=== PATIENT | male | born 1940 | race Caucasian/White ===

== ENCOUNTER → 2017-04-07 | Outpatient (CLI) | payer MEDICARE, BC ==
[~2017-04-07] VITALS: Ht 180.3 cm; Wt 120.0 kg
[~2017-04-07] MED LIST: ACIP20TA6 PO; CEFD300C PO; CHLORHEXIDINE GLUCONATE 2 % 1 PACK (2 CLOTHS) TOPICAL PRN; CHOL1CAP14 PO; DILT-60 PO; FERR65TA PO; FLUT1INH INH; FURO40TA PO; GLIM4TAB PO; INSULIN HUMAN REGULAR 1,000 UNITS/10 ML VIAL SQ PRN; IRBE300T44 PO; IRON18TA; LACTATED RINGER'S 1000 ML IV PRN; METO50TA PO; METOPROLOL TARTRATE 25 MG TAB PO PRN; MONT10TA2 PO; PANT20 PO; POVIDONE IODINE 5% (ANTISEPSIS KIT) 4 APPLICATIONS EACH NARE PRN; PRAV20TA2 PO; PRED10 PO; PRESCAP5 PO; PROPOFOL 200 MG/20 ML AMP IV ONE; SODIUM CHLORID 0.9% 500 ML IV PRN; TAMS0.4C4 PO; VITA10002 PO; VITA200012 PO; XARE20TA PO
[2017-04-07 08:58] VITALS: BP 129/69; PULSE 78; RESP 18; TEMP 98.5; O2SAT 96
[2017-04-07 10:42] VITALS: TEMP 97.6
[2017-04-07 10:53] VITALS: BP 123/65; PULSE 66; RESP 16; O2SAT 98
--- NOTE | 2017-04-07 10:58 | GIPROC ---
[facility] [address] [facility]. [facility], [address] EGD PROCEDURE REPORT EXAM DATE: 04/07/2017 PATIENT NAME: Jason Parrish MR #: [id number] BIRTHDATE: 1940 ATTENDING: Jesús Mondragon MD ORDER #: [id number] SYSTEMS SOFTWARE MANAGER: Hamzah Hemphill and Lupe Mackey STATUS: outpatient INDICATIONS: The patient is a 76 yr old male here for an EGD due to iron deficiency anemia PROCEDURE PERFORMED: EGD w/ biopsy MEDICATIONS: None and Per Anesthesia. TOPICAL ANESTHETIC: none CONSENT: The patient understands the risks and benefits of the procedure and understands that these risks include, but are not limited to: sedation, allergic reaction, infection, perforation and/or bleeding. Alternative means of evaluation and treatment include, among others: physical exam, x-rays, and/or surgical intervention. The patient elects to proceed with this endoscopic procedure. medical equipment was checked for proper function. Hand hygiene and appropriate measures for infection prevention was taken. After the risks, benefits and alternatives of the procedure were thoroughly explained, Informed consent was verified, confirmed and timeout was successfully executed by the treatment team. The patient was anesthetized with topical anesthesia and the Pentax [id number] endoscope was introduced through the mouth and advanced to the third portion of the duodenum. The gastroscope was then slowly withdrawn and removed. ESOPHAGUS: The mucosa of the esophagus appeared normal. Multiple biopsies were performed. GE junction was at 45 cm. The GE juncion was irregular-biopsies taken. STOMACH: There was mild gastritis on the anterior wall of the gastric antrum. Multiple biopsies were performed. Biopsies also taken from fundus,body,angularis. DUODENUM: The duodenal mucosa appeared normal in the 3rd part of the duodenum, duodenal bulb, and 2nd part duodenum. Biopsies were taken of third portion to r/o sprue. ADVERSE EVENTS: There were no complications. IMPRESSIONS: 1. The esophagus appeared normal; multiple biopsies were performed 2. GE junction was at 45 cm . Irregular GE junction-biopsied 3. There was mild gastritis on the anterior wall of the gastric antrum; multiple biopsies were performed 4. Biopsies also taken from fundus,body,angularis 5. Normal duodenal mucosa in the 3rd part of the duodenum, duodenal bulb, and 2nd part duodenum 6. Biopsies were taken of third portion to r/o sprue RECOMMENDATIONS: 1. Await biopsy results. Biopsy results will not be ready for 7-10 days. If you don't hear from us in two weeks, call our office for biopsy results. 2. Colonoscopy to follow PATIENT CONDITION: stable DISPOSITION: Home REPEAT EXAM: NONE Jesús Mondragon MD eSigned: Jesús Mondragon MD 04/07/2017 10:58 AM cc: Raymond Davis M.D. PATIENT NAME: Jason Parrish MR#: [id number]
--- NOTE | 2017-04-07 11:14 | GIPROC ---
[facility] [address] [facility]. [facility], [address] COLONOSCOPY PROCEDURE REPORT EXAM DATE: 04/07/2017 PATIENT NAME: Jason Parrish MR #: [id number] BIRTHDATE: 1940 ENDOSCOPIST: Jessú Mondragon MD ORDER #: [id number] SCIENCE PROFESSOR: Hamzah Hemphill and Lupe Mackey STATUS: outpatient INDICATIONS: The patient is a 76 yr old male here for a colonoscopy due to iron deficiency anemia and rectal bleeding PROCEDURE PERFORMED: Colonoscopy with polypectomy MEDICATIONS: None and Per Anesthesia. PREP QUALITY: marginal PREP TYPE:MoviPrep ESTIMATED BLOOD LOSS: None CONSENT: The patient understands the risks and benefits of the procedure and understands that these risks include, but are not limited to: sedation, allergic reaction, infection, perforation and/or bleeding. Alternative means of evaluation and treatment include, among others: physical exam, x-rays, and/or surgical intervention. The patient elects to proceed with this endoscopic procedure. medical equipment was checked for proper function. Hand hygiene and appropriate measures for infection prevention was taken. After the risks, benefits and alternatives of the procedure were thoroughly explained, Informed consent was verified, confirmed and timeout was successfully executed by the treatment team. A digital exam revealed no abnormalities of the rectum The Pentax [id number] endoscope was introduced through the anus and advanced to the terminal ileum which was intubated for a short distance. The instrument was then slowly withdrawn as the colon was fully examined. COLON FINDINGS: A polypoid shaped sessile polyp measuring 5 mm in size was found. A polypectomy was performed with a cold snare. The resection was complete and the polyp tissue was completely retrieved. A polypoid shaped semi-pedunculated polyp measuring 1.8 cm in size was found in the rectosigmoid colon. A polypectomy was performed using snare cautery. The resection was complete and the polyp tissue was completely retrieved. Mild diverticulosis was noted at the cecum and in the transverse colon. No bleeding was noted from the diverticulosis. Moderate diverticulosis was noted in the descending colon and sigmoid colon. No bleeding was noted from the diverticulosis. Moderate sized internal hemorrhoids were found. Retroflexion was performed The scope was then completely withdrawn from the patient and the procedure terminated. PROCEDURE WITHDRAWAL TIME:12minutes ADVERSE EVENTS: There were no complications. IMPRESSIONS: 1. A sessile polyp measuring 5 mm in size was found; polypectomy was performed with a cold snare 2. A semi-pedunculated polyp measuring 1.8 cm in size was found in the rectosigmoid colon; polypectomy was performed using snare cautery 3. Mild diverticulosis was noted at the cecum and in the transverse colon 4. Moderate diverticulosis was noted in the descending colon and sigmoid colon 5. Moderate sized internal hemorrhoids 6. Retroflexion was performed 7. Revealed no abnormalities of the rectum RECOMMENDATIONS: 1. Await biopsy results. Biopsy results will not be ready for 7-10 days. If you don't hear from us in two weeks, call our office for results. 2. High fiber diet 3. Avoid NSAIDS and Aspirin 4. Restart Xarelto on 04/08/2017 ROV in 1-2 months Call for biospy results in 7-10 days RECALL: NONE Jesús Mondragon MD eSigned: Jesús Mondragon MD 04/07/2017 11:13 AM cc: Raymond Davis M.D. PATIENT NAME: Jason Parrish MR#: [id number]
--- NOTE | 2017-04-07 15:28 | EKG ---
Date Performed: 04/07/2017 Time Performed: 08:36:57 PTAGE: 76 years EKG: Sinus rhythm WITH FIRST DEGREE AV BLOCK INDETERMINATE AXIS RIGHT BUNDLE BRANCH BLOCK NONSPECIFIC ST CHANGES IN TH E PRECORDIAL LEADS, CONSIDER ISCHEMIA. ABNORMAL ECG NO PREVIOUS TRACING DOCTOR: Bao Garcia Interpretating Date/Time 04/07/2017 15:28:00
== END ==
LOC: HEND 07:50
PROVIDERS: ATTEND Internal Medicine Gastroenterology
DX: D50.9 Iron deficiency anemia, unspecified (principal); K62.5 Hemorrhage of anus and rectum; D12.0 Benign neoplasm of cecum; K62.1 Rectal polyp; K57.90 Diverticulosis of intestine, part unspecified, without perforation or abscess without bleeding; K64.8 Other hemorrhoids; D12.7 Benign neoplasm of rectosigmoid junction; K29.70 Gastritis, unspecified, without bleeding; R94.31 Abnormal electrocardiogram [ECG] [EKG]
CPT/HCPCS: 00740; 00810; 43239; 45385; 88305; 88312; 93005; J7120

== ENCOUNTER 2017-04-18 10:42 | Inpatient (IN) | payer MEDICARE, BC ==
[~2017-04-18] VITALS: Ht 180.3 cm; Wt 128.7 kg
[~2017-04-18 10:42] MED LIST changes: -CEFD300C PO; -CHLORHEXIDINE GLUCONATE 2 % 1 PACK (2 CLOTHS) TOPICAL PRN; -CHOL1CAP14 PO; -INSULIN HUMAN REGULAR 1,000 UNITS/10 ML VIAL SQ PRN; -IRON18TA; -LACTATED RINGER'S 1000 ML IV PRN; -METOPROLOL TARTRATE 25 MG TAB PO PRN; -POVIDONE IODINE 5% (ANTISEPSIS KIT) 4 APPLICATIONS EACH NARE PRN; -PRED10 PO; -PROPOFOL 200 MG/20 ML AMP IV ONE; -SODIUM CHLORID 0.9% 500 ML IV PRN
[2017-04-18 10:44] VITALS: BP 158/77; PULSE 114; RESP 24; TEMP 98.2; O2SAT 94
[2017-04-18] MEDS ORDERED: CHOL1CAP14 PO (11:11)
[2017-04-18] MEDS ORDERED: CEFD300C PO (11:11)
[2017-04-18] MEDS ORDERED: PRED10 PO (11:11)
[2017-04-18] MEDS ORDERED: IRON18TA (11:11)
[2017-04-18 11:20] VITALS: BP 130/94; PULSE 87; RESP 17; O2SAT 97
--- NOTE | 2017-04-18 11:25 | PD ---
HPI Chief Complaint: GI Complaint Time Seen by Provider: 11:21 Travel History International Travel<30 days: No Contact w/Intl Traveler<30days: No Traveled to known affect area: No History of Present Illness HPI This is a 76-year-old gentleman with a history of COPD, previous A. fib, recent colon polypectomy on the 15th of this month, who presents today with complaints of bright red blood per rectum. The patient states he was doing well up until today when he went to have a bowel movement and noticed a large amount of bright red blood coming from his rectum. He estimates he's lost about a pint of blood. The patient is currently taking Xarelto. The patient denies any abdominal pain. He denies any rectal pain or discomfort. The patient has obvious bloodsoaked tissue noted in his rectal area. There is no acute dizziness or worsening shortness of breath. There is no chest pain, chest pressure. The patient does have a history of anemia for which she states taking iron and vitamin D. PFSH Past Medical History Hx Anticoagulant Therapy: Yes (XARELTO) Cancer: No Cardiovascular Problems: Yes (QUAD BYPASS) Diabetes: Yes (TYPE II) Patient Takes Glucophage: No Endocrine: Yes Gastrointestinal Disorders: Yes (SCARRED ESOPHAGUS---DILITATIONS X4) Genitourinary: No Hepatitis: No Hiatal Hernia: No Hypertension: Yes Immune Disorder: No Medical other: Yes (ANEMIA) Musculoskeletal: No Neurologic: No Psychiatric: No Reproductive: No Respiratory: Yes (COPD) Thyroid Disease: No Past Surgical History Abdominal Surgery: No AICD: No Body Medical Devices: NONE Cardiac Surgery: Yes (CABGX4) Endocrine Surgery: No Eye Surgery: Yes (BILATERAL TORN RETINAS TREATED WITH LASER SURGERY) Genitourinary Surgery: No Gynecologic Surgery: No Joint Replacement: No Oral Surgery: Yes (TONSILLECTOMY) Pacemaker: No Thoracic Surgery: No Other Surgery: Yes Social History Alcohol Use: No Tobacco Use: No (40 years ago) Substance Use: No Allergies-Medications (Allergen,Severity, Reaction): Coded Allergies: No Known Allergies (Unverified , 04/07/17) Reported Meds & Prescriptions Reported Meds & Active Scripts Active Reported Cefdinir 300 Mg Cap 300 Mg PO BID Prednisone 10 Mg Tab 10 Mg PO DAILY Iron (Ferrous Sulfate) 90 Mg Tab D3 Maximum Strength (Cholecalciferol) 5,000 Unit Cap 5,000 Units PO DAILY Vitamin B-12 (Cyanocobalamin) 1,000 Mcg Tab Unknown Dose PO DAILY Diltiazem CD 24 HR 120 Mg Caper 120 Mg PO DAILY Breo Ellipta Inh (Fluticasone/Vilanterol) 100-25 Mcg/Act Inh 1 Puff INH DAILY Use daily at the same time. Tamsulosin (Tamsulosin HCl) 0.4 Mg Cap 0.4 Mg PO HS Singulair (Montelukast Sodium) 10 Mg Tab 10 Mg PO DAILY Avapro (Irbesartan) 300 Mg Tab 300 Mg PO DAILY Pravastatin 20 Mg Tab 20 Mg PO HS Xarelto (Rivaroxaban) 20 Mg Tab 20 Mg PO DAILY Metoprolol Tartrate 50 Mg Tab 50 Mg PO BID Furosemide 40 Mg Tab 40 Mg PO DAILY Glimepiride 4 Mg Tab 4 Mg PO DAILY Take with breakfast or first main meal Protonix (Pantoprazole Sodium) 20 Mg Tab 20 Mg PO DAILY Review of Systems Except as stated in HPI: all other systems reviewed are Neg General / Constitutional: No: Fever, Chills HENT: No: Headaches, Lightheadedness Cardiovascular: No: Chest Pain or Discomfort, Palpitations Respiratory: Positive: Shortness of Breath, No: Cough, Wheezing Gastrointestinal: Positive: Hematochezia, No: Nausea, Vomiting, Diarrhea, Abdominal Pain Genitourinary: No: Dysuria, Decreased Urinary Output Musculoskeletal: No: Weakness Neurologic: No: Weakness, Dizziness, Headache, Change in Mentation Psychiatric: No: Anxiety, Depression Physical Exam Narrative GENERAL: Well-developed well-nourished gentleman in no acute distress. SKIN: Focused skin assessment warm/dry. HEAD: Atraumatic. Normocephalic. EYES: Pupils equal and round. No scleral icterus. No injection or drainage. ENT: No nasal bleeding or discharge. Mucous membranes pink and moist. NECK: Trachea midline. No JVD. CARDIOVASCULAR: Heart rate 101, sinus tachycardia. No murmur appreciated. RESPIRATORY: No accessory muscle use. Clear to auscultation. Breath sounds equal bilaterally. No Rales or wheezing. GASTROINTESTINAL: Abdomen soft, obese, non-tender, nondistended. Hepatic and splenic margins not palpable. MUSCULOSKELETAL: No obvious deformities. No clubbing. No cyanosis. Bilateral lower shower is with dependent edema. NEUROLOGICAL: Awake and alert. No obvious cranial nerve deficits. Motor grossly within normal limits. Normal speech. PSYCHIATRIC: Appropriate mood and affect; insight and judgment normal. Data Data Last Documented VS Vital Signs Date Time Temp Pulse Resp B/P Pulse Ox O2 Delivery O2 Flow Rate FiO2 04/18/17 12:40 87 17 130/94 97 Room Air 04/18/17 10:44 98.2 Orders Complete Blood Count With Diff (04/18/17 11:56) Comprehensive Metabolic Panel (04/18/17 11:56) Lipase (04/18/17 11:56) Prothrombin Time / Inr (Pt) (04/18/17 11:56) Act Partial Throm Time (Ptt) (04/18/17 11:56) Urinalysis - C+S If Indicated (04/18/17 11:56) Type And Screen (04/18/17 11:56) Abdomen, Upright Only (04/18/17 11:56) Ecg Monitoring (04/18/17 11:56) Iv Access Insert/Monitor (04/18/17 11:56) Oximetry (04/18/17 11:56) Sodium Chlor 0.9% 1000 Ml Inj (Ns 1000 M (04/18/17 11:56) Sodium Chloride 0.9% Flush (Ns Flush) (04/18/17 12:00) Admit Order (Ed Use Only) (04/18/17 13:48) Labs Laboratory Tests Test 04/18/17 11:45 White Blood Count 9.2 TH/MM3 Red Blood Count 3.16 MIL/MM3 Hemoglobin 9.2 GM/DL Hematocrit 28.2 % Mean Corpuscular Volume 89.2 FL Mean Corpuscular Hemoglobin 29.1 PG Mean Corpuscular Hemoglobin 32.6 % Concent Red Cell Distribution Width 16.1 % Platelet Count 208 TH/MM3 Mean Platelet Volume 9.5 FL Neutrophils (%) (Auto) 89.7 % Lymphocytes (%) (Auto) 3.6 % Monocytes (%) (Auto) 6.5 % Eosinophils (%) (Auto) 0.2 % Basophils (%) (Auto) 0.0 % Neutrophils # (Auto) 8.3 TH/MM3 Lymphocytes # (Auto) 0.3 TH/MM3 Monocytes # (Auto) 0.6 TH/MM3 Eosinophils # (Auto) 0.0 TH/MM3 Basophils # (Auto) 0.0 TH/MM3 CBC Comment DIFF FINAL Differential Comment Prothrombin Time 12.2 SEC Prothromb Time International 1.1 RATIO Ratio Activated Partial 26.1 SEC Thromboplast Time Sodium Level 139 MEQ/L Potassium Level 4.5 MEQ/L Chloride Level 108 MEQ/L Carbon Dioxide Level 21.5 MEQ/L Anion Gap 10 MEQ/L Blood Urea Nitrogen 42 MG/DL Creatinine 2.11 MG/DL Estimat Glomerular Filtration 31 ML/MIN Rate Random Glucose 216 MG/DL Calcium Level 8.4 MG/DL Total Bilirubin 0.2 MG/DL Aspartate Amino Transf 11 U/L (AST/SGOT) Alanine Aminotransferase 20 U/L (ALT/SGPT) Alkaline Phosphatase 91 U/L Total Protein 6.6 GM/DL Albumin 3.4 GM/DL Lipase 153 U/L Blood Type O POSITIVE Antibody Screen NEGATIVE Blood Bank Comment MDM Medical Decision Making Medical Screen Exam Complete: Yes Emergency Medical Condition: Yes Differential Diagnosis Upper versus lower GI bleed versus bleeding polypectomy site versus hemorrhoidal bleeding. Narrative Course 76 year-old gentleman presents with rectal bleeding. The patient is on Xarelto. Patient states he lost about a pint of blood. He does have a history of chronic anemia. He also has a history of kidney disease. Patient's hemoglobin is 9.2. He is stable. I discussed the case with Dr. Morel, who is covering for his GI physician, who will see him this afternoon and possibly scope him tonight. If not it'll be tomorrow. The case was also discussed with Dr. Garcia, [facility] hospitalist, who will be the admitting physician. Diagnosis Primary Impression: GI bleed Additional Impressions: Anticoagulated by anticoagulation treatment COPD (chronic obstructive pulmonary disease) Chronic kidney disease Admitting Information Admitting Physician Requests: Admit Ethan Bajwa MD April 18, 2017 11:25
[2017-04-18] MEDS ORDERED: SODIUM CHLOR 0.9% 1000 ML INJ 1,000 ML IV SCH (11:56)
[2017-04-18] MEDS ORDERED: SODIUM CHLORIDE 0.9% FLUSH 10 ML FLUSH IVF PRN (12:00)
[2017-04-18 12:22] LABS: AUTOMATED NEUTROPHIL # 8.3 TH/MM3 (1.8-7.7); EOSINOPHIL % 0.2 % (0.0-4.0); HEMATOCRIT 28.2 % (39.0-51.0); HEMO FLAGS DIFF FINAL; LYMPH % 3.6 % (9.0-44.0); LYMPHOCYTE # 0.3 TH/MM3 (1.0-4.8); MEAN CELL VOLUME 89.2 FL (80.0-100.0); MEAN CORPUSCULAR HEMOGLOBIN 29.1 PG (27.0-34.0); MEAN CORPUSCULAR HGB CONC 32.6 % (32.0-36.0); MONO % 6.5 % (0.0-8.0); NEUT % 89.7 % (16.0-70.0); PLATELET COUNT 208 TH/MM3 (150-450); RED BLOOD COUNT 3.16 MIL/MM3 (4.50-5.90); RED CELL DISTRIBUTION WIDTH 16.1 % (11.6-17.2); WHITE BLOOD COUNT 9.2 TH/MM3 (4.0-11.0)
--- NOTE | 2017-04-18 12:26 | RADRPT ---
EXAM DATE/TIME: 04/18/2017 12:03 [place] COMPARISON: No previous studies available for comparison. INDICATIONS : Blood in stool, colonoscopy 10 days ago MEDICAL HISTORY : Blood on stool SURGICAL HISTORY : CABG. ENCOUNTER: Initial ACUITY: 2 weeks PAIN SCORE: 5/10 LOCATION: Bilateral abdomen FINDINGS: A single erect view of the abdomen demonstrates small pleural effusions. Nonspecific bowel gas patter n without evidence for obstruction. No free air seen. Cardiomegaly. CONCLUSION: 1. Limited exam due to patient's size. No bowel obstruction or free air seen. Small pleural effusions . Giancarlo Arevalo MD on April 18, 2017 at 12:24 Board Certified Radiologist. This report was verified electronically.
[2017-04-18 12:31] LABS: APTT (PATIENT) 26.1 SEC (24.3-30.1); INTERNATIONAL NORMALIZED RATIO 1.1 RATIO; PROTHROMBIN TIME - PATIENT 12.2 SEC (9.8-11.6)
[2017-04-18 12:40] VITALS: BP 130/94; PULSE 87; RESP 17; O2SAT 97
[2017-04-18 12:45] LABS: ANION GAP 10 MEQ/L (5-15); AST (GOT) 11 U/L (15-37); BICARBONATE 21.5 MEQ/L (21.0-32.0); BLOOD UREA NITROGEN 42 MG/DL (7-18); CHLORIDE 108 MEQ/L (98-107); GLOMERULAR FILTRATION RATE 31 ML/MIN (>89); POTASSIUM 4.5 MEQ/L (3.5-5.1); SODIUM (NA) 139 MEQ/L (136-145)
[2017-04-18 12:48] LABS: ALKALINE PHOSPHATASE 91 U/L (45-117); ALT (GPT) 20 U/L (12-78); TOTAL BILIRUBIN ADULT 0.2 MG/DL (0.2-1.0)
[2017-04-18 13:53] LABS: BLOOD, URINE NEG (NEG); GLUCOSE,URINE NEG (NEG); KETONE, URINE NEG (NEG); NITRITE,URINE NEG (NEG); URINE COLOR LIGHT-YELLOW (YELLW/STRAW)
[2017-04-18 13:57] LABS: COMMENT (UR) CULT NOT INDICATED; CULTURE IF INDICATED CULT NOT INDICATED
[2017-04-18] MEDS ORDERED: BISACODYL 10 MG SUPP RECTAL PRN (14:00)
[2017-04-18] MEDS ORDERED: SENNOSIDES 8.6 MG TAB PO PRN (14:00)
[2017-04-18] MEDS ORDERED: LACTULOSE SYRUP 20 GM/30 ML CUP PO PRN (14:00)
[2017-04-18] MEDS ORDERED: ONDANSETRON HCL 4 MG/2 ML VIAL IVP PRN (14:00)
[2017-04-18] MEDS ORDERED: ACETAMINOPHEN 325 MG TAB PO PRN (14:00)
[2017-04-18] MEDS ORDERED: DEXT 5%-NACL 0.9% 1000 ML INJ 1,000 ML IV SCH (14:00)
[2017-04-18] MEDS ORDERED: NALOXONE HCL 0.4 MG/ML AMP IV PRN (14:00)
[2017-04-18] MEDS ORDERED: SODIUM CHLORIDE 0.9% FLUSH 10 ML FLUSH IV FLUSH PRN (14:00)
[2017-04-18] MEDS ORDERED: MAGNESIUM HYDROXIDE SUSP 30 ML CUP PO PRN (14:00)
[2017-04-18] MEDS ORDERED: PEG (High)/E-LYTE SOLN 4000 ML BTL PO ONE (14:45)
[2017-04-18] MEDS: PANTOPRAZOLE SODIUM 40 MG VIAL IV PUSH SCH ×2 (14:53→20:50)
[2017-04-18 16:45] VITALS: BP 130/72; PULSE 82; RESP 18; TEMP 97.2; O2SAT 96
[2017-04-18 18:11] LABS: HEMATOCRIT 29.5 % (39.0-51.0); REVIEW FLAG FINAL
[2017-04-18] MEDS ORDERED: PROPOFOL 200 MG/20 ML AMP IV ONE (18:24)
[2017-04-18] MEDS ORDERED: EPINEPHrine HCL (1:10,000) 1 MG/10 ML SYRINGE SQ ONE (18:26)
--- NOTE | 2017-04-18 18:53 | GIPROC ---
[facility] [address] [facility]. [facility], [address] COLONOSCOPY PROCEDURE REPORT EXAM DATE: 04/18/2017 PATIENT NAME: Jason Parrish MR #: [id number] BIRTHDATE: 1940 ENDOSCOPIST: Bam Morel MD ORDER #: [id number] GLUER MACHINE OPERATOR: Lupe Mackey and Sara Baron STATUS: inpatient INDICATIONS: The patient is a 76 yr old male here for a colonoscopy due to rectal bleeding PROCEDURE PERFORMED: Bicap cautery rectal ulcer MEDICATIONS: Per Anesthesia and None. PREP QUALITY: adequate ESTIMATED BLOOD LOSS: None CONSENT: The patient understands the risks and benefits of the procedure and understands that these risks include, but are not limited to: sedation, allergic reaction, infection, perforation and/or bleeding. Alternative means of evaluation and treatment include, among others: physical exam, x-rays, and/or surgical intervention. The patient elects to proceed with this endoscopic procedure. medical equipment was checked for proper function. Hand hygiene and appropriate measures for infection prevention was taken. After the risks, benefits and alternatives of the procedure were thoroughly explained, Informed consent was verified, confirmed and timeout was successfully executed by the treatment team. A digital exam revealed no abnormalities of the rectum The Pentax [id number] endoscope was introduced through the anus and advanced to the cecum, which was identified by both the appendix and ileocecal valve. The instrument was then slowly withdrawn as the colon was fully examined. COLON FINDINGS: Moderate diverticulosis was noted in the sigmoid colon. A single non-bleeding non-bleeding ulcer, ranging between 3-5 mm in size, with a visible vessel was found in the rectum. Submucosal injection of epinephrine 1:10,000 was performed around the bleeding site with good treatment effect. Bipolar (BICAP) cautery with a 7Fr probe was applied to the site using 10 edmondson power. With good treatment effect. Retroflexion was not performed The scope was then completely withdrawn from the patient and the procedure terminated. ADVERSE EVENTS: There were no complications. IMPRESSIONS: 1. Moderate diverticulosis was noted in the sigmoid colon 2. Single non-bleeding ulcer, ranging between 3-5 mm in size, was found in the rectum; Submucosal injection of epinephrine 1:10,000 was performed around the bleeding site; Bipolar (BICAP) cautery with a 7Fr probe was applied to the site; with good treatment effect 3. Retroflexion was not performed 4. Revealed no abnormalities of the rectum RECOMMENDATIONS: Observe for rebleeding RECALL: NONE Bam Morel MD eSigned: Bam Morel MD 04/18/2017 6:53 PM cc: Jason Davis M.D.
--- NOTE | 2017-04-18 18:59 | MB ---
cc: ALEXA DURAN M.D., LOUIS M. MD PASRICHA, SUNIL P. M.D. DATE OF CONSULTATION 04/18/[address] Garcia REASON FOR CONSULTATION Rectal bleeding. 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 Mondragon. EGD was unremarkable except for some mild gastritis and colonoscopy revealed a 5 mm cecal polyp that was removed by cold snare polypectomy and an 18 mm semipedunculated polyp in the rectosigmoid colon removed by snare cautery polypectomy. The patient also had moderate diverticulosis and moderate-sized internal hemorrhoids. He resumed his Xarelto the following day and he states he was doing well until last night around 6:00 p.m. when he passed some bright red blood per rectum. He did it again about two and a half hours later at 8:30 and then again woke up at 4:30 in the morning and passed some bright red blood per rectum. It happened a fourth time around 7:30 this morning and again around 9:30. He has had no pain with it. He did feel a little bit weak but no chest pain or shortness of breath. He has not passed any blood since 9:30 this morning and it is now almost 6:00 p.m.. Around 3 o'clock this afternoon he did passed one small formed brown stool without any visible blood. He did not take his Xarelto this morning. His hemoglobin on admission is 9.2 and I note from lab work as an outpatient dated March 10 of this year that his hemoglobin was 9.5. He is under the care of someone for chronic anemia and has been taking B12 and iron supplements. He also has chronic renal insufficiency and his creatinine at that time was 2.02 and BUN 56. His creatinine currently is 2.11 and BUN 42. PAST MEDICAL HISTORY The medical history is remarkable for diabetes mellitus, coronary artery disease status post bypass grafting in 2006. History of COPD and asthma. History of gout. History of atrial fibrillation. History of a kidney cyst. History of dysphagia from a Schatzki's ring. History of chronic kidney disease. A history of hypertension and vitamin D deficiency. ALLERGIES He has no known drug allergies. SOCIAL HISTORY Marital status, he is currently single. 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 He is a former smoker. MEDICATIONS Medications at home include: 1. Aciphex 20 milligrams daily. 2. Amaryl 4 milligrams twice daily. 3. Avapro 300 milligrams daily. 4. Breo Ellipta 1 puff daily. 5. Diltiazem ER 120 milligrams daily. 6. Lasix 40 milligrams daily. 7. Metoprolol 50 milligrams twice a day. 8. Pravastatin 20 milligrams daily. 9. Singulair 10 milligrams daily. 10. Tamsulosin 0.4 milligrams daily. 11. Xarelto 20 milligrams daily. REVIEW OF SYSTEMS The review of systems is remarkable for some mild ankle edema but he states just started today and earlier today he was feeling a little generalized weakness but no significant shortness of breath. No chest pain. No nausea or vomiting and no abdominal pain. PHYSICAL EXAMINATION GENERAL: Physical exam reveals a well-developed male in no acute distress. VITAL SIGNS: His blood pressure is 130/72, pulse 82 and regular, respirations 18 and nonlabored, temperature is 97.2. HEENT: Sclerae anicteric. LUNGS: Lungs are mostly clear. He has a few slight expiratory wheezes on the right mid lung field posteriorly. HEART: Heart sounds are regular without appreciable murmur, gallop or rub. He has a well-healed sternotomy scar. ABDOMEN: His abdomen is slightly rounded but soft and nontender with no tympany. No tenderness. Bowel sounds are normal. No palpable masses or hernias. RECTAL: Will be done at the time of his flex sig. EXTREMITIES: He has trace pitting edema in both ankles and feet but no cyanosis. PSYCH: He is alert and oriented with a pleasant affect. IMAGING STUDIES He had an abdominal x-ray that was a limited exam due to the patient's size but there was no bowel obstruction or free air seen. Small pleural effusions were seen. LABORATORY DATA Lab work is as described above. LFTs are unremarkable. INR is 1.1, platelet count is 208,000, white count is 9.2. IMPRESSION 1. Rectal bleeding and occurring 11 days post polypectomy. The patient is on Xarelto but it was held earlier today. He has not had any bleeding since early this morning and did have a formed stool about 3 hours ago. His hemoglobin is not much different than his baseline from last month. He is hemodynamically stable. The case was discussed with Dr. Mondragon earlier today. PLAN I suspect his bleeding was either from the polypectomy site at the rectosigmoid area or possibly his internal hemorrhoids. Since he did pass a formed stool recently and did not pass any dark clots or maroon stool it is unlikely from the cecal polypectomy site. Expectant management could be employed but I suggested we go ahead with a limited flex sig to look in the rectum and the rectosigmoid area and if there is obvious signs that the polypectomy site was bleeding can address this with either a clip or some other hemostasis modality. Also assess for hemorrhoidal bleeding. I discussed doing this with or without sedation depending upon availability of the anesthesia services and the patient was okay with either approach. Further disposition will depend upon the findings and his clinical course. MD ITALO Robertson/LICHA /5:55 PM /6:34 PM
--- NOTE | 2017-04-18 19:04 | HHI.GIFU ---
GI Follow-up Note Consult Follow-up Patient underwent flex sig with form brown stool mid sigmoid and a solitary ulcer rectum c/w post-polypectomy site. No active bleeding but a visible vessel seen which was treated with epinephrine injection and BICAP electrocautery with good results. Rec resume diet and observe over night for rebleeding. Discharge in am if no bleeding. Preferably hold Xarelto for a few days if ok medically. It was a pleasure seeing Jason Parrish. Thank you for this consult. Entered by: Bam Rose MD April 18, 2017 19:04
[2017-04-18 20:00] VITALS: BP 137/74; PULSE 84; RESP 20; TEMP 96.3; O2SAT 97
[2017-04-18] MEDS: SODIUM CHLORIDE 0.9% FLUSH 10 ML FLUSH IV FLUSH SCH (20:50)
[2017-04-18] MEDS: DOCUSATE SODIUM 50 MG/SENNA 8.6 MG TAB PO SCH (20:57)
[2017-04-18 21:00] VITALS: PULSE 68
[2017-04-18 23:15] LABS: REVIEW FLAG FINAL
[2017-04-19] VITALS: BP 130/60; PULSE 84; RESP 20; TEMP 95.7; O2SAT 97
[2017-04-19] MEDS ORDERED: RESP: ALBUTEROL 2.5 MG/3 ML NEB (PRN) NEB (02:15)
[2017-04-19] MEDS ORDERED: RESP: ALBUTEROL 2.5 MG/IPRATROPIUM 0.5 MG NEB (PRN) NEB ×2 (02:30→11:00)
[2017-04-19 02:57] VITALS: O2SAT 96
[2017-04-19 04:00] VITALS: BP 140/68; PULSE 95; RESP 20; TEMP 96; O2SAT 98
[2017-04-19 08:10] VITALS: PULSE 82
[2017-04-19 08:49] VITALS: BP 132/74; PULSE 83; RESP 18; TEMP 96.4; O2SAT 98
[2017-04-19] MEDS: SODIUM CHLORIDE 0.9% FLUSH 10 ML FLUSH IV FLUSH SCH (09:00)
[2017-04-19] MEDS: DOCUSATE SODIUM 50 MG/SENNA 8.6 MG TAB PO SCH (09:00)
[2017-04-19] MEDS: PANTOPRAZOLE SODIUM 40 MG VIAL IV PUSH SCH (09:00)
--- NOTE | 2017-04-19 09:51 | HHI.GIFU ---
GI Follow-up Note Consult Follow-up Subjective: Patient feels well, no further rectal bleeding, no pain. Objective: PHYSICAL EXAMINATION: Vitals signs stable No fever CHEST: Chest is clear to auscultation with slight decrease BS right base. CARDIAC: Regular rate and rhythm with no murmur gallop or rubs. ABDOMEN: Soft, nontender. EXTREMITIES: 2+ pitting edema both ankles. SKIN: Normal; no rash; no jaundice. FAMILY SERVICES COORDINATOR: No focal deficits; alert and oriented times three. Available Data (labs, X- Rays, Procedues) : Hgb 9 ASSESSMENT/PLAN: 1. Post-polypectomy bleed-stable. OK to discharge home. Could restart Xarelto tomorrow am. May rebleed. Hold Xarelto longer if ok with medical team. Will stop IV fluids. It was a pleasure seeing Jason Parrish. Thank you for this consult. Entered by: Bam Rose MD April 19, 2017 09:51
--- NOTE | 2017-04-19 10:58 | HHI.PR ---
Subjective Remarks Sitting on side of bed Alert oriented No acute bleeding noted this a.m. or since admission Afebrile 2+ pitted edema lower extremities (Mitzi Everett) Objective Objective Results - Vital Signs Date Time Temp Pulse Resp B/P Pulse Ox O2 Delivery O2 Flow Rate FiO2 04/19/17 08:49 96.4 83 18 132/74 98 04/19/17 08:10 82 04/19/17 04:00 96.0 95 20 140/68 98 04/19/17 02:57 96 Nasal Cannula 2.00 04/19/17 00:00 95.7 84 20 130/60 97 04/18/17 21:00 68 04/18/17 20:00 96.3 84 20 137/74 97 04/18/17 18:56 85 20 120/65 99 04/18/17 18:42 96.0 80 20 104/56 100 04/18/17 16:45 97.2 82 18 130/72 96 04/18/17 12:40 87 17 130/94 97 Room Air I/O 04/18/17 04/18/17 04/18/17 04/19/17 04/19/17 04/19/17 07:00 15:00 23:00 07:00 15:00 23:00 Intake Total 500 ml Output Total 675 ml 1000 ml Balance -175 ml -1000 ml Intake IV Total 500 ml Output Urine Total 675 ml 1000 ml # Voids 0 # Bowel Movements 0 (Mitzi Everett) Result Diagram: 04/18/17 2300 04/18/17 1145 ROS General: Fatigue, Weakness, Other (10 point ROS done positives noted other systems negative) Cardiac: Edema (lower extremity, seen per outpatient treatment regimen, Lasix) Pulmonary: SOB (mild) GI: Other (no acute bleeding noted) (Mitzi Everett) Physical Exam Physical Exam PHYSICAL EXAMINATION GENERAL: This is a obese male who appears to be in no acute distress. He is alert and awake, HEAD: Normocephalic without any lesion or mass noted. OROPHARYNGEAL: Oropharynx without erythema or edema. NECK: Supple. No nuchal rigidity or lymphadenopathy. Trachea midline without deviation. CARDIAC: Regular rhythm, regular rate, S1 and S2 are heard. LUNGS: Clear to auscultation bilaterally. Occasional shortness of breath with COPD, using oxygen when necessary ABDOMEN: Soft, nontender, no organomegaly or masses. Bowel sounds are heard in all four quadrants. EXTREMITIES: 2+ lower extremity edema. Pulses intact NEUROLOGICAL: Patient mood and affect appropriate. No focal deficit SKIN:Warm and moist Objective Remarks I'm feeling much better and hoped to home today (Mitzi Everett) A/P Assessment and Plan Patient is status post recent polypectomy, started having lower rectal bleeding and came into the emergency room for evaluation. GI bleed, lower, Appreciate GI input and consultation. Patient had small vessel cauterized during GI scope yesterday. Tolerated procedure well. No further bleeding since admission. Patient will start back on his Xarelto tomorrow per GI request. COPD exacerbation, patient started having symptoms this past week and had been treated per his PCP. We will continue the regimen which includes respiratory treatments patient doesn't home, and his course of by mouth antibiotics. Currently patient did have one bout of shortness of breath last night required a DuoNeb treatment. Currently having no further issues. Has used oxygen off and on throughout this 24-hour stay. History of hypertension, medical management placement was placed back on his home meds. Low pressure has been stable since admission History of chronic kidney disease, labs have been monitored throughout hospital stay without any acute changes. This comorbidity is managed on an outpatient basis GERD, stable medical management Discharge planning, this a.m.. Cleared per GI if no further bleeding Patient will go home with follow-up with his PCP and GI doctor. He will also need follow-up with his pulmonary doctor for his recent COPD. Discussed with patient Discussed with nurse Domingo with Dr. garcia, seen on her behalf (Mitzi Everett) Assessment and Plan patient seen and examined agree with above assessment and plan ok to d/c home hold xarelto per GI for 3-4 days. plan of care discussed with patient, family at bedside and Mitzi HERNANDEZ (Jaimie Garcia MD) Mitzi Everett April 19, 2017 10:58 Jaimie Garcia MD April 19, 2017 15:42
[2017-04-19 12:16] VITALS: BP 131/70; PULSE 88; RESP 18; TEMP 96.7; O2SAT 98
--- NOTE | 2017-04-19 16:32 | HHI.DS ---
Discharge Summary Admission Date April 18, 2017 at 13:51 Discharge Date: April 19, 2017 Admitting Diagnosis gi bleed Procedures colonoscopy Brief History 76-year-old white male status post polypectomy this past week. Came into the hospital with symptoms of multiple episodes of rectal bleeding within the past 8 hours before admission. Patient is on Xarelto, and held his a.m. dose due to the rectal bleeding. He called his PCP yesterday a.m. and was told to come to the emergency room for further evaluation. Patient was alert and oriented a good historian. CBC/BMP: 04/18/17 2300 04/18/17 1145 Significant Findings Laboratory Tests Test 04/18/17 04/18/17 04/18/17 11:45 17:31 23:00 Red Blood Count 3.16 MIL/MM3 (4.50-5.90) Hemoglobin 9.2 GM/DL 9.3 GM/DL 9.0 GM/DL (13.0-17.0) (13.0-17.0) (13.0-17.0) Hematocrit 28.2 % 29.5 % 28.0 % (39.0-51.0) (39.0-51.0) (39.0-51.0) Neutrophils (%) (Auto) 89.7 % (16.0-70.0) Lymphocytes (%) (Auto) 3.6 % (9.0-44.0) Neutrophils # (Auto) 8.3 TH/MM3 (1.8-7.7) Lymphocytes # (Auto) 0.3 TH/MM3 (1.0-4.8) Prothrombin Time 12.2 SEC (9.8-11.6) Chloride Level 108 MEQ/L (98-107) Blood Urea Nitrogen 42 MG/DL (7-18) Creatinine 2.11 MG/DL (0.60-1.30) Estimat Glomerular Filtration 31 ML/MIN (>89) Rate Random Glucose 216 MG/DL (74-106) Calcium Level 8.4 MG/DL (8.5-10.1) Aspartate Amino Transf 11 U/L (15-37) (AST/SGOT) Imaging Last Impressions Abdomen X-Ray 04/18/17 1156 Signed Impressions: Service Date/Time: Tuesday, April 18, 2017 12:03 - CONCLUSION: 1. Limited exam due to patient's size. No bowel obstruction or free air seen. Small pleural effusions. Giancarlo Arevalo MD PE at Discharge PHYSICAL EXAMINATION GENERAL: This was a obese male who appeared to be in no acute distress. He was alert and awake, HEAD: Normocephalic without any lesion or mass noted. OROPHARYNGEAL: Oropharynx without erythema or edema. NECK: Supple. No nuchal rigidity or lymphadenopathy. Trachea midline without deviation. CARDIAC: Regular rhythm, regular rate, S1 and S2 are heard. LUNGS: Clear to auscultation bilaterally. Occasional shortness of breath with COPD, using oxygen when necessary ABDOMEN: Soft, nontender, no organomegaly or masses. Bowel sounds are heard in all four quadrants. EXTREMITIES: 2+ lower extremity edema. Pulses intact NEUROLOGICAL: Patient mood and affect appropriate. No focal deficit SKIN:Warm and moist Objective Remarks I'm feeling much better and hoped to home today (Mitzi Everett) Hospital Course Plan A/P Assessment and Plan Patient is status post recent polypectomy, started having lower rectal bleeding and came into the emergency room for evaluation. After coming to the ER and admission patient had no further episodes of bleeding. GI was consult to an performed colonoscopy and the first 24 hours. There was a small vessel that was cauterized. Patient was maintained off his Xarelto for 2 days. He was instructed to restart tomorrow. Patient was also battling with an episode of COPD exacerbation that he was being treated as an outpatient . We continued his medications which included by mouth antibiotics and dual nebs. He will return home to continue the same treatment. Patient was medically stable for discharge. Will follow up with his PCP, GI, and his pulmonary doctor within the next week or 2. Pt Condition on Discharge: Stable Discharge Disposition: Discharge Home Discharge Instructions DIET: Follow Instructions for: Heart Healthy Diet Activities you can perform: Regular-No Restrictions Continued Medications: Cefdinir (Cefdinir) 300 Mg Cap 300 MG PO BID Infection Ref 0 CAP Cholecalciferol (D3 Maximum Strength) 5,000 Unit Cap 5000 UNITS PO DAILY Nutritional Supplement #30 Ref 0 CAP Cyanocobalamin (Vitamin B-12) 1,000 Mcg Tab Unknown Dose PO DAILY Nutritional Supplement #1 Ref 0 BOTTLE Diltiazem CD 24 HR (Diltiazem CD 24 HR) 120 Mg Caper 120 MG PO DAILY #30 Ref 0 CAP Ferrous Sulfate (Iron) 90 Mg Tab Fluticasone-Vilanterol Inh (Breo Ellipta Inh) 100-25 Mcg/Act Inh 1 PUFF INH DAILY Use daily at the same time. #1 Ref 0 INHALER Furosemide (Furosemide) 40 Mg Tab 40 MG PO DAILY #30 Ref 0 TAB Glimepiride (Glimepiride) 4 Mg Tab 4 MG PO DAILY Take with breakfast or first main meal Blood Sugar Management #30 Ref 0 TAB Irbesartan (Avapro) 300 Mg Tab 300 MG PO DAILY Blood Pressure Management #30 Ref 0 TAB Metoprolol Tartrate (Metoprolol Tartrate) 50 Mg Tab 50 MG PO BID #60 Ref 0 TAB Montelukast (Singulair) 10 Mg Tab 10 MG PO DAILY #30 Ref 0 TAB Pantoprazole (Protonix) 20 Mg Tab 20 MG PO DAILY Reflux #30 Ref 0 TAB Pravastatin (Pravastatin) 20 Mg Tab 20 MG PO HS Cholesterol Management #30 Ref 0 TAB Prednisone (Prednisone) 10 Mg Tab 10 MG PO DAILY Ref 0 TAB Tamsulosin (Tamsulosin) 0.4 Mg Cap 0.4 MG PO HS Manage Prostate Problems #30 Ref 0 CAP Discontinued Medications: Rivaroxaban (Xarelto) 20 Mg Tab 20 MG PO DAILY Blood Clot Prevention Ref 0 TAB Mitzi Everett April 19, 2017 16:32
--- NOTE | 2017-04-21 08:34 | MH ---
cc: SEVERIANO ESCOBAR MD DATE OF ADMISSION: 04/18/2017 DATE OF 1940 CHIEF COMPLAINT Rectal bleeding, acute onset. TRAVEL IN THE LAST 30 DAYS None. HISTORY OF PRESENT ILLNESS This is a very pleasant 76-year-old articulate gentleman who had a recent colon polypectomy on 04/07. He was able to return home and has had no acute issues in his postop phase until yesterday. The patient noted that he was around 6:00 p.m. sitting on a pillow for support and when he got up he noticed bright red bleeding. The patient cleaned himself up and again noted some bright red bleeding with a bowel movement 3 hours later. The patient notes at 4:30 a.m., 7:30 a.m. and 9:30 a.m. this morning he continued about every 2-3 hours to notice bright red bleeding coming from his rectum. The patient estimates approximately a pint of blood over the whole course of time. During my exam the patient did note that he had not had any other bleeding since 9:30 this morning and did have a normal BM approximately an hour ago and noted no blood. He states that at that point the stool is formed. The patient currently denies any abdominal pain. No nausea no vomiting. No fever, no body aches. No acute dizziness when he is up. The patient does note that one of his polyps that was removed was about the size of a baseball and has been very cautious and careful during his postop. 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 The patient has had a history also of some chronic kidney disease and some anemia but states at this point in time he has been asymptomatic except for the rectal bleeding. The patient has had a significant history of COPD and has recently been seen by pulmonary medicine in the past week for an exacerbation. He states that he has seasonal allergies and has been having problems for the past couple of weeks. He was recently placed on Prednisone p.o., cefdinir and he has had that which he has been taking for 3 days. He also received a shot of steroids in the office and he uses nebulizer treatments at home. He is currently on O2 at 2 liters with low volumes and some mild exertional shortness of breath. MEDICAL HISTORY Cardiovascular disease, diabetes type 2. Gastroesophageal reflux disease, scarred narrowing esophagus, history of atrial fib, recent hospital stay in December of 2016, hypertension, anemia, chronic kidney disease, COPD, bilateral torn retinas. PAST SURGICAL HISTORY CABG x4, bilateral laser surgery for torn retinas, tonsillectomy. ALLERGIES None known. MEDICATIONS Reported: 1. Cefdinir. 2. Prednisone. 3. Iron. 4. Vitamin B12. 5. Vitamin D. 6. Cardizem. 7. Inhalers. 8. Tamsulosin. 9. Avapro. 10. Pravastatin. 11. Xarelto. 12. Metoprolol. 13. Lasix. 14. Glimepiride. 15. Protonix. SOCIAL HISTORY The patient is currently , lost his within the past year. His daughter lives out of town but he is here visiting and staying with him till next Friday. He denies any tobacco use for the past 40 years. No alcohol. No illicit drugs. REVIEW OF SYSTEMS A 12-point review was obtained. Positives noted in the HPI which include the bright red bleeding, the COPD exacerbation with shortness of breath, mild wheezing, low air volumes, otherwise systems are normal and unremarkable. PHYSICAL EXAMINATION VITAL SIGNS: His temperature is 98.2, pulse initially was 114 on admission, now 87. Respiratory rate 24 on ER admission, now 17. Blood pressure now 130/94, O2 sat between 94 and 97 on 2 liters nasal cannula. GENERAL: This is a pleasant obese white male looks to be his stated age, very articulate, alert, oriented and a good historian. SKIN: Skin is pale, warm and dry. Turgor is fair to thin. HEENT: Atraumatic, normocephalic. LISA. Mucous membranes are pale but moist. Tongue is midline. NECK: Neck is supple. CARDIOVASCULAR: S1-S2, rhythm appears regular with mild tachycardia. He does have 1 to 2+ pitting edema in his lower extremities bilateral. Pulses are intact and his extremities are warm. ABDOMEN: Abdomen is a large, round and obese. Active bowel sounds in all four quads. He has no tenderness in his upper or lower quadrants with light palpation. PULMONARY: Lungs are essentially clear anteriorly with some mild expiratory wheezing noted. He has decreased breath sounds in his bases, right is more decreased than the left. MUSCULOSKELETAL: Moves his extremities with purpose. He has the edema that has been noted in the cardiovascular section, 1 to 2+ pitting. No obvious deformities. He does have some mild discoloration to the skin on his lower extremities bilateral. NEUROLOGICAL: He is alert, oriented, a good historian. Speech is clear and understandable. Tongue is midline. PSYCHIATRIC: Appropriate mood and affect. DIAGNOSTIC DATA WBC count 9.2, RBC 3.16, hemoglobin 9.2, hematocrit 28.2, platelet count 208, neutrophil count 89.7, lymphocytes count percentage auto 3.6. PT, INR is 1.1. Chemistry sodium 139, potassium 4.5, chloride 108, carbon dioxide 21.5, amnion gap 10, BUN 42, creatinine 2.11, GFR is 31, random glucose 216, calcium 8.4, total bilirubin normal at 0.2, AST 11. All other chemistries are normal including his alkaline phosphatase, albumin and lipase. Urine normal range. No cultures indicated. DIAGNOSTIC DATA Abdominal x-ray shows no bowel obstruction. No free air seen. Small pleural effusions. ASSESSMENT 1. GI bleed, probable lower. 2. COPD exacerbation. 3. Chronic kidney disease. 4. History of coronary artery disease history. History of atrial field. The patient takes Xarelto. 5. Gastroesophageal reflux disease. PLAN Plan is to admit. We will monitor his vital signs q. four and p.r.n. and keep him on cardiac monitoring for any arrhythmias. We will maintain the patient at n.p.o. status for now until he can be seen for a consultation through GI. There is a good possibility that the patient may be able to have further testing this afternoon. If there is no further testing to be done we will feed him and then hold him n.p.o. for in the morning. The patient is an inpatient admission. We are going to consult cardiology for their expert opinion. The patient was placed on Xarelto. He was on Plavix until December of 2016, then placed on Xarelto. He did not take his dose today and that was under the instructions of his physician. We need an expert opinion of medication management with this patient being postop a colon polypectomy versus his cardiovascular disease. Will maintain his IV access, monitor his pulse ox. Since the patient has been treated recently for a COPD exacerbation we will maintain his outpatient medications which will include his antibiotic and his p.o. steroids. We will also give him DuoNebs, oxygen and monitor with his shortness of breath. The patient also noted to have increased fluid in his lower extremities and pleural effusions. Will draw a BNP to monitor for any possible congestive heart failure and labs in the morning. The patient is to my knowledge full code, full aggressive care and we will follow. Dictated by DAVID Acosta MD MANNY James/LICHA /3:32 PM /8:23 AM
== END 2017-04-19 16:22 | disposition home or self-care (01) | DRG 394 ==
LOC: NEPC 10:42 → NEDA 13:51 → N05A 15:39
PROVIDERS: ADMIT Internal Medicine; ATTEND Internal Medicine
PROC: 0W3P8ZZ Control Bleeding in Gastrointestinal Tract, Via Natural or Artificial Opening Endoscopic (ICD-10-PCS; principal; 2017-04-18 18:26)
DX: K62.6 Ulcer of anus and rectum (principal); J44.1 Chronic obstructive pulmonary disease with (acute) exacerbation; E11.22 Type 2 diabetes mellitus with diabetic chronic kidney disease; I48.91 Unspecified atrial fibrillation; K62.5 Hemorrhage of anus and rectum; D64.9 Anemia, unspecified; E55.9 Vitamin D deficiency, unspecified; K29.70 Gastritis, unspecified, without bleeding; M10.9 Gout, unspecified; K21.9 Gastro-esophageal reflux disease without esophagitis; N18.9 Chronic kidney disease, unspecified; I12.9 Hypertensive chronic kidney disease with stage 1 through stage 4 chronic kidney disease, or unspecified chronic kidney disease; I25.10 Atherosclerotic heart disease of native coronary artery without angina pectoris; Z87.891 Personal history of nicotine dependence; Z79.01 Long term (current) use of anticoagulants; Z95.1 Presence of aortocoronary bypass graft
CPT/HCPCS: 74000; 80053; 81001; 83690; 85014; 85018; 85025; 85610; 85730; 86850; 86900; 86901; 94664; 96360; C9113; J0171; J7030; J7042